=== PATIENT | female | born 1980 | race Caucasian/White ===

== ENCOUNTER 2018-12-03 09:06 | Inpatient (IN) ==
[2018-12-03] MEDS ORDERED: PANTOPRAZOLE 40 MG VIAL IV STA (09:23)
[2018-12-03] MEDS ORDERED: METOCLOPRAMIDE 10 MG/2 ML VIAL IV STA (09:23)
[2018-12-03] MEDS ORDERED: SODIUM CHLORIDE 0.9% 500 ML IV STA (09:23)
[2018-12-03] MEDS ORDERED: ONDANSETRON 4 MG/2 ML VIAL IV STA ×2 (09:23→11:34)
[2018-12-03 10:04] LABS: Basophils % 0.4 % (0.0-0.8); Eosinophils # 0.1 10*3/uL (0.0-0.87); Hematocrit 40.8 VOL% (35.7-47.0); Hemoglobin 13.6 GM/DL (12.0-16.0); Immature Granulocytes % 0.3 %; Immature Granulocytes Absolute 0.02 #; Lymphocytes # 1.6 10*3/uL (1.4-4.0); Lymphocytes % 20.7 % (21.3-54.2); Mean Corpuscular HGB Conc 33.3 GM/DL (32-36); Mean Corpuscular Hemoglobin 27 PG (27-34); Mean Corpuscular Volume 81.3 FL (87-102); Mean Platelet Volume 9.6 FL (9.6-12.0); Monocytes # 0.5 10*3/uL (0.11-0.8); Monocytes % 6.8 % (1.7-12.7); Neutrophils # 5.6 10*3/uL (1.4-7.4); Neutrophils % 70.8 % (38.7-73.9); Platelet Count 236 T/CUMM (130-400); Red Blood Count 5.02 MC/CUMM (3.8-5.5); Red Cell Distribution Width 12.2 % (9.3-17.3); White Blood Count 7.9 T/CUMM (4-12)
[2018-12-03 10:25] LABS: Albumin 3.7 G/DL (3.4-5.0); Bilirubin,Total 0.6 MG/DL (0.2-1.0); Total Protein 8.1 G/DL (6.4-8.3)
[2018-12-03 10:26] LABS: Osmolality,Calculated 276.7 MOS/KG (273-304); Potassium 4.9 MMOL/L (3.5-5.1)
[2018-12-03] MEDS ORDERED: PIPERACILLIN/TAZOBACTAM 4,500 MG in SODIUM CHLORIDE 0.9% 100 ML IV STA ×2 (10:27→10:45)
[2018-12-03] MEDS ORDERED: SODIUM CHLORIDE 0.9% 1,000 ML IV STA (10:48)
[2018-12-03] MEDS ORDERED: fentaNYL 100 MCG/2 ML VIAL IV STA (11:34)
[2018-12-03 12:26] LABS: Amorphous Crystals,Urine Occasional /HPF (Few); Apearance,Urine CLOUDY (Clear); Bacteria,Urine Moderate /HPF (Few); Bilirubin,Urine Negative (Negative); Blood, Urine Negative (Negative); Glucose,Urine (UA) Negative (Negative); Ketones,Urine Negative (Negative); Mucus,Urine Moderate /LPF (Occasional); Nitrite,Urine Positive (Negative); Protein,Urine Negative; RBC,Urine 2 /HPF (0-4); Squamous Epithelial Cell,Urine Occasional /HPF (0-10); WBC,Urine 4 /HPF (0-6)
[2018-12-03 12:28] LABS: Urine Color Yellow (Yellow)
[2018-12-03] MEDS ORDERED: PIPERACILLIN/TAZOBACTAM 3,375 MG in SODIUM CHLORIDE 0.9% 100 ML IV SCH (14:30)
[2018-12-03] MEDS: SODIUM CHLORIDE 0.9% 1,000 ML IV SCH ×2 (16:15→23:46)
[2018-12-03] MEDS: MORPHINE 4 MG/1 ML VIAL IV PRN ×2 (16:15→19:48)
[2018-12-03] MEDS: NICOTINE 7 MG/24 HR PATCH TRANSDERM SCH (16:38)
[2018-12-03] MEDS ORDERED: cefTRIAXone 1,000 MG in SODIUM CHLORIDE 0.9% 100 ML IV SCH (17:00)
[2018-12-03] MEDS ORDERED: ZALEPLON 5 MG CAPSULE PO PRN (19:29)
[2018-12-03] MEDS: PIPERACILLIN/TAZOBACTAM 3,375 MG in SODIUM CHLORIDE 0.9% 100 ML IV SCH (19:49)
[2018-12-04] MEDS: ONDANSETRON 4 MG/2 ML VIAL IV PRN (01:28)
[2018-12-04] MEDS: MORPHINE 4 MG/1 ML VIAL IV PRN ×5 (01:29→21:38)
[2018-12-04] MEDS: PIPERACILLIN/TAZOBACTAM 3,375 MG in SODIUM CHLORIDE 0.9% 100 ML IV SCH (03:23)
[2018-12-04 04:21] LABS: Basophils % 0.5 % (0.0-0.8); Eosinophils # 0.1 10*3/uL (0.0-0.87); Hematocrit 35.6 VOL% (35.7-47.0); Hemoglobin 11.9 GM/DL (12.0-16.0); Immature Granulocytes % 0.2 %; Immature Granulocytes Absolute 0.01 #; Lymphocytes # 1.8 10*3/uL (1.4-4.0); Lymphocytes % 42.4 % (21.3-54.2); Mean Corpuscular HGB Conc 33.4 GM/DL (32-36); Mean Corpuscular Hemoglobin 28 PG (27-34); Mean Corpuscular Volume 82.2 FL (87-102); Mean Platelet Volume 9.8 FL (9.6-12.0); Monocytes # 0.3 10*3/uL (0.11-0.8); Monocytes % 6.9 % (1.7-12.7); Platelet Count 211 T/CUMM (130-400); Red Blood Count 4.33 MC/CUMM (3.8-5.5); Red Cell Distribution Width 12.2 % (9.3-17.3); White Blood Count 4.3 T/CUMM (4-12)
[2018-12-04 04:43] LABS: Calcium 7.6 MG/DL (8.5-10.1); Osmolality,Calculated 279.3 MOS/KG (273-304); Potassium 3.6 MMOL/L (3.5-5.1)
[2018-12-04 04:47] LABS: Albumin 2.9 G/DL (3.4-5.0); Bilirubin,Direct 0.15 MG/DL (0.0-0.20); Bilirubin,Indirect 0.5 MG/DL (0.0-1.0); Bilirubin,Total 0.6 MG/DL (0.2-1.0); Total Protein 6.5 G/DL (6.4-8.3)
[2018-12-04] MEDS: SODIUM CHLORIDE 0.9% 1,000 ML IV SCH (05:44)
[2018-12-04] MEDS: LACTATED RINGERS 1,000 ML IV SCH ×4 (08:07→21:41)
[2018-12-04] MEDS: NICOTINE 7 MG/24 HR PATCH TRANSDERM SCH (08:13)
[2018-12-04] MEDS: PANTOPRAZOLE 40 MG VIAL IV SCH (08:14)
[2018-12-04] MEDS: cefTRIAXone 1,000 MG in SYRINGE 1 EACH IV SCH (11:11)
[2018-12-05] MEDS: LACTATED RINGERS 1,000 ML IV SCH ×4 (01:23→17:00)
[2018-12-05] MEDS: MORPHINE 4 MG/1 ML VIAL IV PRN ×4 (01:24→20:23)
[2018-12-05 05:00] LABS: Bilirubin,Direct 0.13 MG/DL (0.0-0.20); Bilirubin,Indirect 0.4 MG/DL (0.0-1.0); Bilirubin,Total 0.5 MG/DL (0.2-1.0); Total Protein 6.8 G/DL (6.4-8.3)
[2018-12-05] MEDS: PANTOPRAZOLE 40 MG VIAL IV SCH (08:45)
[2018-12-05] MEDS: NICOTINE 7 MG/24 HR PATCH TRANSDERM SCH (08:47)
[2018-12-05] MEDS: cefTRIAXone 1,000 MG in SYRINGE 1 EACH IV SCH (10:34)
[2018-12-05] MEDS ORDERED: TISSUE ADHESIVE 1 EACH APPLICATOR TOP ONE (14:07)
[2018-12-05] MEDS ORDERED: LIDOCAINE 1%/EPI INJ 20 ML VIAL ONE (14:07)
[2018-12-05] MEDS ORDERED: BUPIVACAINE 0.25% /EPI 10 ML VIAL ONE (15:04)
[2018-12-05] MEDS ORDERED: SEVOFLURANE 1 UNIT/15 MINUTE INH ONE (16:07)
[2018-12-05] MEDS ORDERED: HYDROmorphone 2 MG/1 ML VIAL ONE ×2 (16:07→16:12)
[2018-12-05] MEDS ORDERED: MIDAZOLAM 2 MG/2 ML VIAL ONE (16:07)
[2018-12-05] MEDS ORDERED: PROPOFOL 200 MG/20 ML VIAL IV ONE (16:07)
[2018-12-05] MEDS ORDERED: GLYCOPYRROLATE 0.4 MG/2 ML VIAL ONE (16:08)
[2018-12-05] MEDS ORDERED: ROCURONIUM 100 MG/10 ML VIAL IV ONE (16:08)
[2018-12-05] MEDS ORDERED: NEOSTIGMINE 10 MG/10 ML VIAL ONE (16:08)
[2018-12-05] MEDS ORDERED: fentaNYL 100 MCG/2 ML VIAL ONE (16:08)
[2018-12-05] MEDS ORDERED: ONDANSETRON 4 MG/2 ML VIAL ONE (16:11)
[2018-12-05] MEDS ORDERED: hydrALAZINE 20 MG/1 ML VIAL ONE (16:13)
[2018-12-05] MEDS: HYDROmorphone 2 MG/1 ML VIAL IV PRN ×2 (16:15→16:20)
[2018-12-05] MEDS ORDERED: ONDANSETRON 4 MG/2 ML VIAL IV PRN (16:17)
[2018-12-05] MEDS ORDERED: hydrALAZINE 20 MG/1 ML VIAL IV ONE (16:18)
[2018-12-05] MEDS: ONDANSETRON 4 MG/2 ML VIAL IV PRN (20:29)
[2018-12-06] MEDS: MORPHINE 4 MG/1 ML VIAL IV PRN (00:02)
[2018-12-06] MEDS: LACTATED RINGERS 1,000 ML IV SCH ×3 (00:33→09:37)
[2018-12-06] MEDS: ONDANSETRON 4 MG/2 ML VIAL IV PRN (02:19)
[2018-12-06 04:57] LABS: Basophils % 0.3 % (0.0-0.8); Eosinophils # 0.1 10*3/uL (0.0-0.87); Eosinophils % 0.9 % (0.00-10.9); Hematocrit 38.3 VOL% (35.7-47.0); Hemoglobin 12.9 GM/DL (12.0-16.0); Immature Granulocytes % 0.1 %; Immature Granulocytes Absolute 0.01 #; Lymphocytes # 1.2 10*3/uL (1.4-4.0); Mean Corpuscular HGB Conc 33.7 GM/DL (32-36); Mean Corpuscular Hemoglobin 27 PG (27-34); Mean Platelet Volume 9.8 FL (9.6-12.0); Monocytes # 0.5 10*3/uL (0.11-0.8); Monocytes % 7.3 % (1.7-12.7); Neutrophils # 5.1 10*3/uL (1.4-7.4); Neutrophils % 74.4 % (38.7-73.9); Platelet Count 206 T/CUMM (130-400); Red Blood Count 4.73 MC/CUMM (3.8-5.5); Red Cell Distribution Width 11.9 % (9.3-17.3); White Blood Count 6.8 T/CUMM (4-12)
[2018-12-06 05:09] LABS: Calcium 8.2 MG/DL (8.5-10.1); Potassium 3.5 MMOL/L (3.5-5.1)
[2018-12-06] MEDS: PANTOPRAZOLE 40 MG VIAL IV SCH (08:39)
[2018-12-06] MEDS: NICOTINE 7 MG/24 HR PATCH TRANSDERM SCH (08:44)
[2018-12-06 11:08] VITALS: BP 129/86
[2018-12-06] MEDS: cefTRIAXone 1,000 MG in SYRINGE 1 EACH IV SCH (11:29)
== END 2018-12-06 12:15 | disposition home or self-care (01) | DRG 418 ==
LOC: N.ED 09:06 → N.EDINP 14:02 → N.3E 15:52
PROVIDERS: ADMIT Internal Medicine; ATTEND Internal Medicine
PROC: LAPCHOL (2018-12-05 14:57)